=== PATIENT | male | born 1955 | race Caucasian/White ===

== ENCOUNTER 2019-03-18 06:23 | Day surgery (SDC) | payer MEDICAID ==
[2019-03-18] MEDS ORDERED: Propofol 200 MG/20 ML SDV IV ONE (06:24)
[2019-03-18] MEDS ORDERED: Lidocaine 1% PF 2 ML SDV INJECT ONE (06:24)
[2019-03-18] MEDS ORDERED: Lactated Ringers 1,000 ML IV SCH (06:45)
--- NOTE | 2019-03-18 08:12 | PCM.PN ---
- General Info Date of Service: 03/18/19 - Review of Systems Systems Review Comment:: 64 y/o male with history of rectal bleeding and hemorrhoids here for colonoscopy. He is medically stable to proceed. I have again reviewed the proposed procedure with the patient. Plan hemorrhoid banding as well as colonoscopy if findings indicate. He agrees to proceed accepting risks. - Patient Data Vitals - Most Recent: Last Vital Signs Temp 98.2 F 03/18/19 07:15 Pulse 84 03/18/19 07:15 Resp 16 03/18/19 07:15 BP 121/78 03/18/19 07:15 Pulse Ox 98 03/18/19 07:15 Weight - Most Recent: 194 lb Lab Results Last 24 Hours: Laboratory Results - last 24 hr 03/18/19 Range/Units 07:44 POC Glucose 118 H (80-116) mg/dL Med Orders - Current: Current Medications Lactated Ringer's (Ringers, Lactated) 1,000 mls @ 125 mls/hr IV ASDIRECTED HERMILO Last Admin: 03/18/19 07:44 Dose: 125 mls/hr - Problem List Review Problem List Initiated/Reviewed/Updated: Yes - My Orders Last 24 Hours: My Active Orders 03/17/19 Dinner Nothing Per Oral Diet [DIET] 03/18/19 06:45 Patient Status [ADT] Routine Blood Glucose Check, Bedside [RC] ONETIME Patient to Empty Bladder [RC] ASDIRECTED Verify Patient Consent Obtain [RC] ASDIRECTED Lactated Ringers [Ringers, Lactated] 1,000 ml IV ASDIRECTED Peripheral IV Insertion Adult [OM.PC] Routine - Assessment Assessment:: Rectal Bleeding Hemorrhoids - Plan Plan:: Colonoscopy with possible hemorrhoid banding
--- NOTE | 2019-03-18 08:52 | PCM.OPNOTE ---
- General Post-Op/Procedure Note Date of Surgery/Procedure: 03/18/19 Operative Procedure(s): Colonoscopy with hemorrhoid Banding Findings: Normal Colon Large internal/external hemorrhoids Pre Op Diagnosis: Rectal Bleeding Post-Op Diagnosis: Hemorrhoids Anesthesia Technique: MAC Primary Surgeon: Roger Douglas Pathology: none Output, Urine Amount: 0 EBL in mLs: 0 Complications: None Condition: Good
--- NOTE | 2019-03-18 14:33 | OR ---
DATE OF OPERATION: 03/18/2019 SURGEON: Roger Douglas MD PREOPERATIVE DIAGNOSIS: Rectal bleeding. POSTOPERATIVE DIAGNOSIS: Hemorrhoids. OPERATION PERFORMED: Colonoscopy with hemorrhoid banding. INDICATIONS FOR SURGERY: This 64-year-old male has a history of rectal bleeding. He has some known hemorrhoids, but a colonoscopy is planned to rule out another bleeding site and also possibly perform hemorrhoid banding. FINDINGS: The patient has large internal and external hemorrhoidal complexes noted at the 11 o'clock and 7 o'clock positions on his right side. The remainder of the colon appears normal. No polyps or other abnormalities were seen. PROCEDURE IN DETAIL: The patient was taken to the operating room. He was given intravenous sedation and with him in the left lateral decubitus position, digital rectal exam was performed showing no rectal masses. The Olympus colonoscope was inserted into the rectum and retroflexed examination of the rectal canal was performed. The scope was then carefully advanced under direct visualization through the entire length of the colon until the cecum was reached. Cecal acquisition was confirmed by noting normal internal cecal anatomy including the appendiceal orifice and ileocecal valve. The light was also noted to transilluminate the abdominal wall in the right lower quadrant. After examining the cecum, the scope was slowly withdrawn sequentially re- examining the colonic segments until the entire colon and rectum had been fully examined. The colonoscope was removed. The anoscope was inserted and inspection of the anal canal via the anoscope identified the above-described hemorrhoids. Rubber-band ligation was performed of the internal hemorrhoids located at the 11 o'clock and 7 o'clock positions. The anoscope was removed and the patient was then taken from the operating room in satisfactory condition. ESTIMATED BLOOD LOSS: Zero. COMPLICATIONS: None. PROGNOSIS: Good. /[id number] MYA/JEFF
== END 2019-03-18 09:39 | disposition home or self-care (01) ==
LOC: FB.SDS 06:23
PROVIDERS: ATTEND Surgery
DX: K64.8 Other hemorrhoids (principal); K64.4 Residual hemorrhoidal skin tags; I10 Essential (primary) hypertension; E11.9 Type 2 diabetes mellitus without complications; E78.00 Pure hypercholesterolemia, unspecified; Z87.891 Personal history of nicotine dependence; Z86.73 Personal history of transient ischemic attack (TIA), and cerebral infarction without residual deficits; Z80.0 Family history of malignant neoplasm of digestive organs; Z79.82 Long term (current) use of aspirin; Z79.84 Long term (current) use of oral hypoglycemic drugs; Z79.899 Other long term (current) drug therapy
CPT/HCPCS: 45378; 46221; 82962; J2001; J2704; J7120

== ENCOUNTER 2024-01-30 06:29 | Day surgery (SDC) | payer MEDICARE, OTHER, MEDICAID ==
[2024-01-30] MEDS ORDERED: fentaNYL 100 MCG/2 ML SDV IV ONE (06:30)
[2024-01-30] MEDS ORDERED: Midazolam 1 MG/ML 2 ML SDV IV ONE (06:30)
[2024-01-30] MEDS ORDERED: Lactated Ringers 1,000 ML IV SCH (06:30)
[2024-01-30] MEDS: Sodium Chloride 0.9% 10 ML Syringe FLUSH PRN (07:42)
[2024-01-30] MEDS: acetaZOLAMIDE 500 MG Cap.ER PO ONE (08:38)
== END 2024-01-30 09:00 | disposition home or self-care (01) ==
LOC: FB.SDS 06:29
PROVIDERS: ATTEND Ophthalmology
DX: E11.36 Type 2 diabetes mellitus with diabetic cataract (principal); I10 Essential (primary) hypertension; E78.5 Hyperlipidemia, unspecified; F32.A Depression, unspecified; Z79.899 Other long term (current) drug therapy; Z88.5 Allergy status to narcotic agent
CPT/HCPCS: 00142; A9270-GY; J2250; J3010; J3490; V2632